=== PATIENT | female | born 1945 | race Caucasian/White ===

== ENCOUNTER 2017-10-18 11:50 | Emergency (ER) | payer MEDICARE, OTHER ==
[~2017-10-18] VITALS: Ht 157.5 cm; Wt 99.8 kg
[~2017-10-18 11:50] MED LIST: ACET500 PO; ALBU.083IS IH; ALBU3IS INH; ALBU4 PO; ALBU90OI61 INH; ASPI81CH PO; ASPI81EC PO; ATOR10 PO; AZIT250 PO; B Complex #11 EACH PO; Boniva150 MG PO; CALCAVITD PO; CALCIUM 600 +1 EAC1 PO; CENTRUM SILVER1 EAC2 PO; CHOL10002 PO; CYCL10 PO; Culturelle1 CAP PO; Cyclobenzaprine5 MG PO; DOCU100 PO; ESOM20 PO; FAMO20 PO; FISH OIL 1,2001 EACH PO; FISH1000 PO; FLUT110OIA IH; FLUT220OIA INH; FURO100EL PO; FURO20 PO; FURO40 PO; GLUCHON PO; HYDCHL12.5 PO; HYDCHL25 PO; IBAN2.5; K-Dur20 MEQ PO; LEVSOD100 PO; LEVSOD88 PO; LIDOCAINE 3% CREAM TOP; LIDOCAINE HCL 3% TOP; LORA.5 PO; LOVA20 PO; LOVA40 PO; MAGOXI400 PO; METO.5 PO; METO2.5 PO; MONT10T PO; MONT5TCH PO; MULTI VIT; MULVITA PO; MULVITB PO; NEBI5 PO; NITR.4SL SL; Nexium40 MG PO; OMEG1CAP30 PO; OMEP40CA12 PO; OXYACE5T PO; POTA10T PO; POTCHL20ER PO; PRED20; Percocet 5-3251 EACH PO; Q-Tussin100 MG/5 M PO; RANI150 PO; RXOXYACE PO; RXPROM25 PO; TRAM50 PO; VERAMYST; VITAMIN D2000 UNIT PO; VITAMIN D31000 UNIT PO; Veramyst10 GM; XARELTO15 MG PO; [UNRECOGNIZED DRUG - OTHER] PO; [UNRECOGNIZED DRUG - OTHER] PO
[2017-10-18] MEDS ORDERED: Ultram50 MG PO (13:48)
== END 2017-10-18 14:04 | disposition home or self-care (01) ==
LOC: ER 11:50
DX: G89.29 Other chronic pain (principal); M54.5 Low back pain; E66.01 Morbid (severe) obesity due to excess calories; Z68.41 Body mass index [BMI] 40.0-44.9, adult; G47.30 Sleep apnea, unspecified; Z88.1 Allergy status to other antibiotic agents; Z88.5 Allergy status to narcotic agent; Z88.8 Allergy status to other drugs, medicaments and biological substances; Z79.899 Other long term (current) drug therapy; Z79.82 Long term (current) use of aspirin; Z79.51 Long term (current) use of inhaled steroids
CPT/HCPCS: 72100; 96374; 99283; J1885